=== PATIENT | female | born 1950 | race Caucasian/White ===

== ENCOUNTER 2019-11-13 10:44 | Outpatient (CLI) | payer MEDICARE, OTHER, SELFPAY ==
--- NOTE | 2019-11-13 10:49 | XRR_ITS ---
PROCEDURE INFORMATION: Exam: XR Left Wrist Exam date and time: 11/13/2019 11:35 AM Age: 69 years old Clinical indication: Pain; Wrist; Left; Additional info: L wrist pain, no known trauma, medial, since May 2019 TECHNIQUE: Imaging protocol: XR Left wrist. Views: 3 or more views. COMPARISON: No relevant prior studies available. FINDINGS: Bones/joints: No acute fracture. 1st carpal/metacarpal degenerative/arthritic change. No periarticular erosion. Soft tissues: Normal. XR/XR wrist LT min 3V* [id number] IMPRESSION: No acute findings. Degenerative/arthritic change.
== END 2019-11-13 10:45 | disposition home or self-care (01) ==
LOC: LAB 10:47
PROVIDERS: PCP Family Medicine; Visit Provider Family Medicine
DX: M25.532 Pain in left wrist (principal)
CPT/HCPCS: 73110

== ENCOUNTER → 2021-08-18 14:39 | Outpatient (BNVA) | payer MEDICARE, OTHER, SELFPAY | PROVIDERS: PCP Family Medicine; Visit Provider Internal Medicine | DX: R00.2 Palpitations (principal); I48.20 Chronic atrial fibrillation, unspecified | CPT/HCPCS: 93229 ==

== ENCOUNTER 2021-08-22 10:06 | Observation (INO) | payer MEDICARE, OTHER, SELFPAY ==
[2021-08-22] VITALS (17 sets, daily range): BP systolic 116–209; BP diastolic 46–100; PULSE 45–80; RESP 13–22; TEMP 36.8–36.9; O2SAT 96–100; BMI 19.8
--- NOTE | 2021-08-22 10:07 | XRR_ITS ---
PROCEDURE INFORMATION: Exam: XR Chest Exam date and time: 08/22/2021 11:32 AM Age: 70 years old Clinical indication: Device placement; Patient HX: PT has a loop recorder; Additional info: Cp TECHNIQUE: Imaging protocol: Radiologic exam of the chest. Views: 1 view. COMPARISON: No relevant prior studies available. FINDINGS: Tubes, catheters and devices: Recording device projects over the thorax. Lungs: No focal airspace disease. Pleural spaces: Unremarkable. No pleural effusion. No pneumothorax. Heart/Mediastinum: Cardiomediastinal silhouette is within normal limits. Bones/joints: Unremarkable. XR/XR chest 1V portable [id number] IMPRESSION: No acute cardiopulmonary abnormality.
--- NOTE | 2021-08-22 10:07 | ECG_ITS ---
[facility] Test Date: 2021-08-22 Pat Name: Katy Posada Department: Room: Gender: Female Marketing Content Specialist: : 1950 Requested By: Jose Casanova Order Number: [id number] Reading MD: Natali Fierro M.D. Measurements Intervals [place] Rate: 57 P: 66 [place]: 165 QRS: 155 QRSD: 96 T: 77 QT: 379 QTc: 372 Interpretive Statements SINUS BRADYCARDIA WITH SINUS ARRHYTHMIA INDETERMINATE AXIS INTERPRETATION BASED ON A DEFAULT AGE OF 40 YEARS No previous ECG available for comparison Electronically Signed On 08-22-2021 12:58:13 CDT by Natali Fierro M.D. [email or web address] [facility] Gasalliance hospitalActualSunket[facility].ActivNetworks/store/NU/[id number] f
--- NOTE | 2021-08-22 11:04 | W.ED.ARRPALP ---
HPI - Arrhythmia/Palpitations General: Chief Complaint: Arrhythmia/Palpitations Stated Complaint: heart abnormality Time Seen by Provider: 08/22/21 10:07 History of Present Illness: 70-year-old presents due to episodes of arrhythmia on Holter monitor. She does not have history of A. fib or atrial flutter however on Holter monitor she had some episodes of A. fib today with RVR. Denies any chest pain. Does report palpitations during the event but denies any current palpitations. Denies any shortness of breath. Denies fevers or chills. Instructed to come to the ER by primary care. States she is currently asymptomatic. Review of Systems Narrative: - CONSTITUTIONAL: Denies weight loss, fever and chills. - HEENT: Denies changes in vision and hearing. - RESPIRATORY: Denies SOB and cough. - CV: As above - GI: Denies abdominal pain, nausea, vomiting and diarrhea. - : Denies dysuria and urinary frequency. - MSK: Denies myalgia and joint pain. - SKIN: Denies rash and pruritus. - NEUROLOGICAL: Denies headache, weakness, numbness and syncope. - PSYCHIATRIC: Denies suicidal ideation [facility] ED PFSH: Medical History Edema History of nonmelanoma skin cancer IBS (irritable bowel syndrome) Surgical History History of tonsillectomy Family History Other CAD (coronary artery disease) Cancer Hypertension Social History Smoking and tobacco status: never smoked Alcohol intake: never History of recent travel: No Physical Exam Narrative: EXAM NARRATIVE: - GENERAL: Alert and oriented x 3. No acute distress. Well-nourished. - EYES: EOMI. Anicteric. - HENT: Atraumatic, no C-spine tenderness. Moist mucous membranes. No scleral icterus. No cervical lymphadenopathy. - LUNGS: Clear to auscultation bilaterally. No accessory muscle use. Equal lung sounds bilaterally. No respiratory distress. - CARDIOVASCULAR: Regular rate and rhythm. No murmur. No JVD. - ABDOMEN: Soft, non-tender and non-distended. Negative CVA tenderness bilaterally, no rebound or guarding, negative Leahy sign. No palpable masses. - EXTREMITIES: No edema. Non-tender. - SKIN: No rashes or lesions. Warm. - NEUROLOGIC: No meningismus or focal neurological deficits. CN II-XII grossly intact. - PSYCHIATRIC: Cooperative. Appropriate mood and affect. Course Vital Signs: Vital signs: Vital Signs Temperature 98.3 F 08/22/21 10:42 Pulse Rate 55 L 08/22/21 14:12 Respiratory Rate 18 08/22/21 14:12 Blood Pressure 135/64 08/22/21 14:12 Pulse Oximetry 96 08/22/21 14:12 MDM - Arrhythmia/Palpitations Medical Decision Making 70-year-old female presents due to intermittent palpitations. She had episodes of A. fib with RVR: Holter monitor. Here she denies any chest pain or shortness of breath. Has mild hypokalemia and supplemental potassium provided. EKG does not reveal any acute ischemic change however delta troponin significantly uptrending. Started on aspirin and heparin. Remainder of lab work and imaging reviewed. Discussed with hospitalist and they agreed patient would benefit from admission. Patient admitted in stable condition. Further evaluation management per hospitalist team. Lab Data : 08/22/21 11:04 08/22/21 11:04 Radiology Impressions Chest X-Ray 08/22/21 10:07 IMPRESSION: No acute cardiopulmonary abnormality. Laboratory Results WBC 4.4 10^3/uL (4.0-10.0) 08/22/21 11:04 RBC 4.39 10^6/uL (4.1-5.3) 08/22/21 11:04 Hgb 12.9 g/dL (11.5-15.3) 08/22/21 11:04 Hct 38.0 % (37.0-47.0) 08/22/21 11:04 MCV 86.6 fl (81-99) 08/22/21 11:04 MCH 29.4 pg (28.0-34.0) 08/22/21 11:04 MCHC 33.9 g/dL (30.0-36.0) 08/22/21 11:04 RDW 12.2 % (12.1-15.1) 08/22/21 11:04 Plt Count 286 10^3/cmm (130-400) 08/22/21 11:04 MPV 10.1 fL (7.4-10.4) 08/22/21 11:04 Neut % (Auto) 58.8 % 08/22/21 11:04 Lymph % (Auto) 30.1 % 08/22/21 11:04 [place] % (Auto) 8.6 % 08/22/21 11:04 Eos % (Auto) 1.8 % 08/22/21 11:04 Baso % (Auto) 0.7 % 08/22/21 11:04 Neut # (Auto) 2.60 10^3/uL (1.8-7.7) 08/22/21 11:04 Lymph # (Auto) 1.3 10^3/uL (0.8-4.8) 08/22/21 11:04 [place] # (Auto) 0.4 10^3/uL (0.2-0.9) 08/22/21 11:04 Eos # (Auto) 0.1 10^3/uL (0.0-0.8) 08/22/21 11:04 Baso # (Auto) 0.0 10^3/uL (0.0-0.1) 08/22/21 11:04 Nucleated RBC % (auto) 0 % 08/22/21 11:04 Nucleated RBCs # 0.0 /100WBC 08/22/21 11:04 Sodium 141 mmol/L (136-145) 08/22/21 11:04 Potassium 3.2 mmol/L (3.5-5.1) L 08/22/21 11:04 Chloride 102 mmol/L (98-107) 08/22/21 11:04 Carbon Dioxide 27 mmol/L (22-29) 08/22/21 11:04 Anion Gap 15.2 (5-19) 08/22/21 11:04 BUN 12 mg/dL (8-23) 08/22/21 11:04 Creatinine 0.4 mg/dL (0.5-0.9) L 08/22/21 11:04 GFR Calculation 157.8 mL/min (90-130) H 08/22/21 11:04 Glucose 86 mg/dL (65-115) 08/22/21 11:04 Calculated Osmolality 291 mOsm/kg (285-295) 08/22/21 11:04 Calcium 8.5 mg/dL (8.5-10.5) 08/22/21 11:04 Total Bilirubin 0.5 mg/dL (0.15-1.2) 08/22/21 11:04 AST 25 U/L (0-32) 08/22/21 11:04 ALT 15 U/L (0-33) 08/22/21 11:04 Alkaline Phosphatase 68 IU/L (35-105) 08/22/21 11:04 Troponin T Baseline 7 ng/L (0-10) 08/22/21 11:04 Troponin T 120 Minute 32.30 ng/L (0-10) H 08/22/21 13:08 Delta Troponin T 25.30 ABS# (0-10) H* 08/22/21 13:08 NT-Pro-B Natriuret Pep 164 pg/mL (0-125) H 08/22/21 11:04 Total Protein 6.7 g/dL (6.6-8.7) 08/22/21 11:04 Albumin 4.0 g/dL (3.5-5.2) 08/22/21 11:04 Globulin 2.7 g/dL (1.3-4.6) 08/22/21 11:04 TSH 2.48 uIU/mL (0.27-4.20) 08/22/21 11:04 Free T4 1.30 ng/dL (0.82-1.77) 08/22/21 11:04 Urine Color Yellow (Yellow) 08/22/21 12:15 Urine Appearance Clear (CLEAR) 08/22/21 12:15 Urine pH 8 (5-7) H 08/22/21 12:15 Ur Specific [place] 1.010 (1.005-1.030) 08/22/21 12:15 Urine Protein Neg (Negative) 08/22/21 12:15 Urine Glucose (UA) Norm (Normal) 08/22/21 12:15 Urine Ketones Negative (Negative) 08/22/21 12:15 Urine Blood Neg (Negative) 08/22/21 12:15 Urine Nitrate Negative (Negative) 08/22/21 12:15 Urine Bilirubin Neg (Negative) 08/22/21 12:15 Prot Sulfosalicylic Acd Negative (Negative) 08/22/21 12:15 Urine Urobilinogen Norm mg/dL (Negative) 08/22/21 12:15 Ur Leukocyte Esterase Negative (Negative) 08/22/21 12:15 Urine RBC None /hpf (0-2) 08/22/21 12:15 Urine WBC None /hpf (0-5) 08/22/21 12:15 Ur Squamous Epith Cells Rare /hpf (0-5) 08/22/21 12:15 Amorphous Sediment Not Reportable 08/22/21 12:15 Urine Bacteria None /hpf (NONE) 08/22/21 12:15 EKG Data EKG 1: Other EKG comments: Chest X-Ray 08/22/21 10:07 IMPRESSION: No acute cardiopulmonary abnormality. Sinus bradycardia with sinus arrhythmia, no sign of acute ischemia or other acute abnormality. Discharge Plan Discharge Condition: Stable Prescriptions: No Action triamterene-hydrochlorothiazid 37.5-25 mg tablet 1 tab PO DAILY 0RF omeprazole 20 mg capsule,delayed release(DR/EC) 20 mg PO DAILY 0RF hyoscyamine sulfate 0.375 mg tablet extended release 12 hr 0.375 mg PO Q12H PRN (Reason: abdominal cramps) 0RF multivitamin Tablet 1 tab PO DAILY 0RF vitamin E 100 unit Capsule 100 unit PO DAILY 0RF Vitamin C 500 mg Tablet 500 mg PO DAILY 0RF Stool Softener 100 mg Capsule 100 mg PO DAILY 0RF Referrals: Alfredo Koroma MD [Primary Care Provider] - Coding Level of Care Code ED Addiction Therapist for [facility] Larry
[2021-08-22 11:19] LABS: Basophils % 0.7 %; Eosinophils # 0.1 10^3/uL (0.0-0.8); Eosinophils % 1.8 %; Hemoglobin 12.9 g/dL (11.5-15.3); Lymphocytes # 1.3 10^3/uL (0.8-4.8); Lymphocytes % 30.1 %; Mean Corpuscular HGB Conc 33.9 g/dL (30.0-36.0); Mean Corpuscular Hemoglobin 29.4 pg (28.0-34.0); Mean Corpuscular Volume 86.6 fl (81-99); Mean Platelet Volume 10.1 fL (7.4-10.4); Monocytes # 0.4 10^3/uL (0.2-0.9); Monocytes % 8.6 %; Neutrophils % 58.8 %; Nucleated Red Blood Cells % 0 %; Platelet Count 286 10^3/cmm (130-400); Red Blood Count 4.39 10^6/uL (4.1-5.3); Red Cell Distribution Width 12.2 % (12.1-15.1); White Blood Count 4.4 10^3/uL (4.0-10.0)
[2021-08-22 11:39] LABS: Troponin(5th) Baseline 7 ng/L (0-10)
--- NOTE | 2021-08-22 12:07 | ECG_ITS ---
[facility] Test Date: 2021-08-22 Pat Name: Katy Posada Department: Room: Gender: Female Judge'S Clerk: : 1950 Requested By: Jose Casanova Order Number: [id number] Joaquin MD: Natali Fierro M.D. Measurements Intervals [place] Rate: 51 P: FL: QRS: 38 QRSD: 99 T: 70 QT: 413 QTc: 382 Interpretive Statements Sinus bradycardia with PACs compared to ECG 08/22/2021 10:48:57 Sinus arrhythmia no longer present Indeterminate axis no longer present Electronically Signed On 08-22-2021 13:06:14 CDT by Natali Fierro M.D. [id number]
[2021-08-22 12:12] LABS: Alanine Aminotransferase 15 U/L (0-33); Alkaline Phosphatase 68 IU/L (35-105); Blood Urea Nitrogen 12 mg/dL (8-23); Calcium 8.5 mg/dL (8.5-10.5); Carbon Dioxide 27 mmol/L (22-29); Chloride 102 mmol/L (98-107); Creatinine Clr Calc Pharmacy 63.9695; Globulin 2.7 g/dL (1.3-4.6); Glomerular Filtration Rate 157.8 mL/min (90-130); Glucose 86 mg/dL (65-115); NT Pro B Type Natriuretic Pept 164 pg/mL (0-125); Osmolality Calculated 291 mOsm/kg (285-295); Sodium 141 mmol/L (136-145); Thyroid Stimulating Hormone 2.48 uIU/mL (0.27-4.20); Total Bilirubin 0.5 mg/dL (0.15-1.2); Total Protein 6.7 g/dL (6.6-8.7)
[2021-08-22 12:15] LABS: Anion Gap 15.2 (5-19); Aspartate Amino Transferase 25 U/L (0-32); Potassium 3.2 mmol/L (3.5-5.1)
[2021-08-22 12:34] LABS: Urine Appearance Clear (CLEAR); Urine Color Yellow (Yellow); pH Urine 8 (5-7)
[2021-08-22] MEDS: potassium chloride ER 20 mEq Tablet PO (12:34)
[2021-08-22 12:35] LABS: Bilirubin Urine Neg (Negative); Blood Urine Neg (Negative); Glucose Urine UA Norm (Normal); Ketones Urine Negative (Negative); Leukocyte Esterase Urine Negative (Negative); Nitrate Urine Negative (Negative); Protein Urine Neg (Negative); Sulfosalicylic Acid Urine Negative (Negative); Urobilinogen Urine Norm (Negative)
[2021-08-22 12:36] LABS: Add Urine Culture? No; Squamous Epithelial Cell Urine RARE /hpf (0-5)
[2021-08-22] MEDS: aspirin 81 mg Chew Tablet 324 MG PO (14:26)
[2021-08-22] MEDS: enoxaparin 60 mg/0.6 mL Syringe SUBCUT (14:26)
[2021-08-22 14:36] LABS: Magnesium 1.8 mg/dL (1.7-2.3)
--- NOTE | 2021-08-22 15:45 | P.HP_ITS ---
Providers/Chief Complaint Primary Care Provider: Alfredo Koroma MD Chief Complaint: heart abnormality History of Present Illness Katy Posada is a 70 year old female with a past medical history of hypertension, GERD, who presents to [facility] due to concerns for chest palpitations, and abnormal Holter monitor results. Patient tells me that for the last week she has been experiencing chest palpitations, no chest pain, no shortness of breath, but feelings of rapid heart rate, she tried to see Dr. Koroma on Monday however he was full, due to prolonged episodes of chest palpitations on Monday, she eventually saw Dr. Koroma on Monday, and he had an event monitor placed, patient was called by event monitor company to come to the hospital due to abnormal heart rhythms. She denies any chest pain, no cardiovascular history, does have extensive family history of CAD. Mother had CAD, father also has CAD, in their 80s Review of Systems Const: Denies: fever(s) Eyes: Denies: change in vision ENMT: Denies: nasal congestion Resp: Denies: dyspnea, productive cough, non-productive cough or wheezing GI: Denies: abdominal pain, nausea, vomiting or hematemesis : Denies: flank pain Skin/Breast: Denies: rash Neuro: Denies: headache(s), dizziness or vertigo Medications/Allergies Home Medications Medication Instructions Recorded Confirmed Last Taken Type hyoscyamine sulfate 0.375 mg 0.375 mg PO Q12H PRN 01/08/20 08/22/21 Unknown History tablet,extended release,12 hr omeprazole 20 mg capsule,delayed 20 mg PO DAILY 01/08/20 08/22/21 08/22/21 History release triamterene 37.5 1 tab PO DAILY 01/08/20 08/22/21 08/22/21 History mg-hydrochlorothiazide 25 mg tablet ascorbic acid (vitamin C) 500 mg 500 mg PO DAILY 08/22/21 08/22/21 08/22/21 History tablet (Vitamin C) docusate sodium 100 mg capsule 100 mg PO DAILY 08/22/21 08/22/21 08/22/21 History (Stool Softener) multivitamin 1 tab PO DAILY 08/22/21 08/22/21 08/22/21 History vitamin E 100 unit capsule 100 unit PO DAILY 06/08/22/21 08/22/21 History Allergies Allergy/AdvReac Type Severity Reaction Status Date / Time No Known Allergies Allergy Verified 06/03/21 09:50 PFSH Acute PFSH: Medical History (Updated 08/22/21 @ 15:48 by Alfredo Casiano MD) Edema History of nonmelanoma skin cancer Hx of lower gastrointestinal bleeding IBS (irritable bowel syndrome) Surgical History History of tonsillectomy Family History Other CAD (coronary artery disease) Cancer Hypertension Social History Smoking and tobacco status: never smoked Alcohol intake: never History of recent travel: No Vitals/I&O/Wt Last Vital Signs Temp 98.3 F 08/22/21 10:42 Pulse 60 08/22/21 14:36 Resp 18 08/22/21 14:36 BP 160/63 08/22/21 14:36 Pulse Ox 100 08/22/21 14:30 Weight last 48 hrs Weight 58.967 kg Physical Exam Const: COMMON NORMALS: no acute distress and patient oriented x3 HENMT: COMMON NORMALS: normocephalic HEAD & SCALP: normocephalic Eye: COMMON NORMALS: Equal, round and reactive pupils present and EOMs intact bilaterally Neck/C-Spine: COMMON NORMALS: no JVD Resp: COMMON NORMALS: normal respiratory effort, No retractions, No use of accessory muscles and clear to auscultation bilaterally AUSCULTATION: clear to auscultation bilaterally Cardio: COMMON NORMALS: no JVD, regular rate, regular rhythm, S1 normal heart sound present and S2 normal heart sound present RATE: regular rate RHYTHM: regular rhythm HEART SOUNDS: S1 normal heart sound present and S2 normal heart sound present GI: COMMON NORMALS: Normal to inspection, nondistended, normoactive bowel sounds present, Soft to palpation, non-tender, No hepatosplenomegaly present, no masses and no bruits PALPATION: Yes Soft to palpation and Yes No hepatosplenomegaly present Extremity: COMMON NORMALS: capillary refill normal, no clubbing, cyanosis or edema, no calf tenderness and no pedal edema Neuro: COMMON NORMALS: patient oriented x3, CN's II-XII intact bilaterally, moves all extremities and no focal motor deficits Psych: COMMON NORMALS: mental status grossly normal Data : 08/22/21 11:04 08/22/21 11:04 A&P Assessment and plan (1) NSTEMI (non-ST elevated myocardial infarction): Status: Acute (2) Atrial fibrillation: Status: Acute (3) Hx of gastric ulcer: Status: Acute Plan Arrhythmia events -Review of patient's event monitor -Shows episodes of atrial fibrillation, atrial flutter, SVT Plan -Aspirin, statin, beta-annabel -Given arrhythmia meds, start therapeutic Lovenox, given gastric ulcer history, GI bleed history, start Protonix, Carafate -Continue telemetry monitoring -Potassium placement, magnesium replacement -We will check TSH -Full code -Lovenox for DVT prophylaxis NSTEMI -No chest pain complaints, but has palpitations, arrhythmia events as above -Serial EKGs, serial troponins -Lovenox, aspirin, statin -N.p.o. midnight, cardiac stress test tomorrow Attestations Medical Necessity Statement*: Patient requires hospitalization, outpatient with observation, for arrhythmia, A. fib, SVT, elevated troponins Coding Level of Care Code Acute Electromechanical Equipment Assembler for [facility] Diagnoses NSTEMI (non-ST elevated myocardial infarction) I21.4 Atrial fibrillation I48.91 Hx of gastric ulcer Z87.11
--- NOTE | 2021-08-22 16:07 | ECG_ITS ---
[facility] Test Date: 2021-08-22 Pat Name: Katy Posada Department: Room: 276 Gender: Female Mucking Machine Operator: : 1950 Requested By: Jose Casanova Order Number: [id number] Joaquin MD: Natali Fierro M.D. Measurements Intervals [place] Rate: 61 P: 61 [place]: 165 QRS: -42 QRSD: 95 T: 52 QT: 392 QTc: 397 Interpretive Statements SINUS RHYTHM WITH SINUS ARRHYTHMIA POSSIBLE LEFT ATRIAL ENLARGEMENT [-0.1mV P-WAVE IN V1/V2] LEFT AXIS DEVIATION [QRS AXIS < -30] Compared to ECG 08/22/2021 12:09:10 Left-axis deviation now present Sinus bradycardia no longer present Electronically Signed On 08-23-2021 21:32:51 CDT by Natali Fierro M.D. [email or web address] centerPal[facility].Feidee/store/OM/[id number]
--- NOTE | 2021-08-22 17:12 | USCV_ITS ---
Katy Posada Age: 70 Gender: F : 1950 Exam Date: 08/22/2021 19:15 Ordering Phys: Alfredo Casiano MD Technologist: Jonathon Manjarrez [place] [facility] [place]: Shortness of breath BP: 138 / 100 HR: 50 Rhythm: Sinus Technical Quality: Adequate MEASUREMENTS (Male / Female) Normal Values 2D ECHO LV Diastolic Diameter PLAX 3.8 cm 4.2 - 5.9 / 3.9 - 5.3 cm LV Systolic Diameter PLAX 2.1 cm IVS Diastolic Thickness 0.9 cm 0.6 - 1.0 / 0.6 - 0.9 cm IVS Systolic Thickness 1.6 cm LVPW Diastolic Thickness 1.6 cm 0.6 - 1.0 / 0.6 - 0.9 cm LVPW Systolic Thickness 2.1 cm LVOT Diameter 2.1 cm LV Ejection Fraction 2D Teich 66.9 % LV Ejection Fraction MOD 2C 32.9 % LV Ejection Fraction 2C AL 34.6 % LA Diameter 3.0 cm Aorta at Sinotubular Diameter 2.7 cm IVC Diameter 2.5 cm M-MODE Aortic Annulus Diameter 3.1 cm LA Ao Ratio MM 1.2 MV E Point Septal Separation 1.6 cm DOPPLER AV Peak Velocity 103.0 cm/s LVOT Peak Velocity 72.0 cm/s AV Area Cont Eq vti 2.5 cm squared AV Area Cont Eq pk 2.4 cm squared MV Area PHT 5.0 cm squared Mitral E to A Ratio 1.6 MV E' Velocity 53.5 cm/s Mitral E to MV E' Ratio 8.6 Mitral E to LV E' Lateral Ratio 9.8 Mitral E to LV E' Septal Ratio 7.6 TR Peak Velocity 224.9 cm/s TR Peak Gradient 20.2 mmHg TR Mean Velocity 156.6 cm/s TR Mean Gradient 11.6 mmHg TR Velocity Time Integral 67.2 cm Right Atrial Pressure 3.0 mmHg Pulmonary Artery Systolic Pressu 23.2 mmHg PV Peak Velocity 72.0 cm/s FINDINGS Left Ventricle Normal left ventricular size, systolic function and wall thickness, with no regional wall motion abnormalities. Left ventricular ejection fraction is estimated at 60 %. Grade II diastolic dysfunction, moderately elevated filling pressures. Right Ventricle Normal right ventricular size and systolic function. RVSP could not be calculated due to incomplete tricuspid regurgitation velocity profile. Right Atrium Normal right atrial size. Left Atrium Normal left atrial size. Mitral Valve Mild mitral annular calcification. Mildly thickened mitral valve. No mitral valve stenosis. Trace to mild mitral valve regurgitation. Aortic Valve No aortic valve stenosis. Trace aortic valve regurgitation. Tricuspid Valve Structurally normal tricuspid valve. Pulmonic Valve Pulmonic valve not well visualized. No pulmonary valve stenosis. No pulmonary valve regurgitation. Pericardium No pericardial effusion. Aorta Normal-sized aortic root. IVC Dilated IVC with normal respiratory variation. CONCLUSIONS 1. Normal left ventricular size, systolic function and wall thickness, with no regional wall motion abnormalities. Left ventricular ejection fraction is estimated at 60 %. Grade II diastolic dysfunction, moderately elevated filling pressures. 2. Normal right ventricular size and systolic function. 3. Trace to mild mitral valve regurgitation. 4. No prior similar studies to compare. Natali Fierro MD (Electronically Signed) Final Date: 23 August 2021 08:38 S
[2021-08-22] MEDS: pantoprazole 40 mg SDV IVP (17:26)
[2021-08-22] MEDS: sucralfate 1 gm Tablet PO ×2 (17:27→20:46)
[2021-08-22] MEDS: magnesium sulfate premix 2 GM/50 ML PIGGYBACK IV (17:28)
[2021-08-22 17:36] LABS: Chol HDL Ratio 3.16 mg/dL (0.0-4.40); Cholesterol 218 mg/dL (0-200); HDL Cholesterol 69 mg/dL (60-100); LDL Cholesterol Calculated 128 mg/dL (50-129); LDL HDL Ratio 1.86 RATIO (0.00-3.22); Triglycerides 105 mg/dL (0-150)
[2021-08-22] MEDS: metoprolol tartrate 25 mg Tablet PO (17:38)
[2021-08-22 18:21] LABS: Troponin 5 6HR 89.41 ng/L (0-10)
[2021-08-22 18:23] LABS: Estmated Average Glucose 108; Hemoglobin A1C 5.4 % (4.0-6.0)
[2021-08-22 18:27] LABS: Troponin 5 6HR Delta 82.41 ng/L (0-12)
[2021-08-23] VITALS (7 sets, daily range): BP systolic 121–156; BP diastolic 60–81; PULSE 43–81; RESP 14–17; TEMP 36.3–36.8; O2SAT 98–99
[2021-08-23] MEDS: enoxaparin 60 mg/0.6 mL Syringe SUBCUT ×2 (01:23→13:45)
[2021-08-23] MEDS: pantoprazole 40 mg SDV IVP (04:34)
[2021-08-23 04:42] LABS: Basophils # 0.1 10^3/uL (0.0-0.1); Basophils % 1.1 %; Eosinophils # 0.2 10^3/uL (0.0-0.8); Eosinophils % 2.8 %; Hematocrit 38.9 % (37.0-47.0); Hemoglobin 13.3 g/dL (11.5-15.3); Lymphocytes % 37.2 %; Mean Corpuscular HGB Conc 34.2 g/dL (30.0-36.0); Mean Corpuscular Hemoglobin 29.3 pg (28.0-34.0); Mean Corpuscular Volume 85.7 fl (81-99); Mean Platelet Volume 10.2 fL (7.4-10.4); Monocytes # 0.5 10^3/uL (0.2-0.9); Monocytes % 9.9 %; Neutrophils # 2.62 10^3/uL (1.8-7.7); Neutrophils % 48.8 %; Nucleated Red Blood Cells % 0 %; Platelet Count 321 10^3/cmm (130-400); Red Blood Count 4.54 10^6/uL (4.1-5.3); Red Cell Distribution Width 12.2 % (12.1-15.1); White Blood Count 5.4 10^3/uL (4.0-10.0)
[2021-08-23 05:05] LABS: Alanine Aminotransferase 15 U/L (0-33); Alkaline Phosphatase 66 IU/L (35-105); Anion Gap 11.4 (5-19); Aspartate Amino Transferase 22 U/L (0-32); Blood Urea Nitrogen 11 mg/dL (8-23); Carbon Dioxide 31 mmol/L (22-29); Chloride 102 mmol/L (98-107); Globulin 2.3 g/dL (1.3-4.6); Glomerular Filtration Rate 157.8 mL/min (90-130); Glucose 87 mg/dL (65-115); Magnesium 2.3 mg/dL (1.7-2.3); Osmolality Calculated 291 mOsm/kg (285-295); Potassium 3.4 mmol/L (3.5-5.1); Sodium 141 mmol/L (136-145); Total Bilirubin 0.5 mg/dL (0.15-1.2); Total Protein 6.3 g/dL (6.6-8.7)
[2021-08-23 05:07] LABS: Creatinine Clr Calc Pharmacy 63.9695
--- NOTE | 2021-08-23 06:58 | ECG_ITS ---
[facility] Test Date: 2021-08-23 Pat Name: Katy Posada Department: Room: 276 Gender: Female Computer Game Tester: Annamaria Casanova : 1950 Requested By: Alfredo Casiano Order Number: [id number] Joaquin MD: Celso Pillai M.D. Interpretive Statements NAME OF STUDY: LEXISCAN SESTAMIBI STRESS TEST INDICATION: Chest Pain, PROCEDURE: At the baseline, the EKG revealed sinus bradycardia with a rate of [address] changes.. The baseline blood pressure was 139/73 mm Hg with a heart rate of 51 beats/min. Lexiscan was infused over a period of 20 seconds. A total of 0.4 milligrams of Lexiscan was infused. The stress phase was continued for a total of 5 minutes. Heart rate at the end of the stress phase was 73 with a blood pressure 119/71. The EKG at the peak infusion revealed no significant changes. Sestamibi was injected 20 seconds after the Lexiscan infusion. Blood pressure at the end of the recovery phase was 121/69 with a heart rate of 68 per minute. CONCLUSION: 1. No significant EKG changes with the LexiScan infusion 2. No LexiScan induced chest pain or cardiac arrhythmia 3. Normal blood pressure and heart rate response 4. Sestamibi/sestamibi perfusion scan pending; see separate report. Electronically Signed On 08-27-2021 11:25:16 CDT by Celso Pillai M.D. [email or web address]/[id number]
[2021-08-23] MEDS: regadenoson 0.4 Mg/5 ml Syringe IVP (07:43)
[2021-08-23] MEDS: aspirin 81 mg EC Tablet PO (09:18)
[2021-08-23] MEDS: hydroCHLOROthiazide 25 mg Tablet PO (09:18)
[2021-08-23] MEDS: ascorbic acid 500 mg Tablet PO (09:18)
[2021-08-23] MEDS: docusate sodium 100 mg Capsule PO (09:18)
[2021-08-23] MEDS: multivitamin therapeutic Tablet 1 TAB PO (09:18)
[2021-08-23] MEDS: sucralfate 1 gm Tablet PO (12:11)
--- NOTE | 2021-08-23 15:01 | PM.DCS ---
Discharge Providers Date of Admission: 08/22/21 14:19 Date of Discharge: August 23, 2021 Attending Provider at Admission: Alfredo Casiano MD Attending Provider at Discharge: Alfredo Casiano MD Primary Care Provider: Alfredo Koroma MD Diagnoses at Discharge Discharge Diagnosis (1) NSTEMI (non-ST elevated myocardial infarction): Status: Acute (2) Atrial fibrillation: Status: Acute (3) Hx of gastric ulcer: Status: Acute Reason for Visit Reason for Visit: heart abnormality Hospital Course Hospital Course Katy Posada is a 70 year old female with a past medical history of hypertension, GERD, who presents to [facility] due to concerns for chest palpitations, and abnormal Holter monitor results.? Patient was admitted to [facility] Was found to have paroxysmal atrial fibrillation events on her event monitor -It was reported SVT episodes, they look more like atrial fibrillation episodes to me, also had atrial flutter -No events here in the hospital -Managed with beta-annabel, therapeutic Lovenox -Hemoglobin remained stable, no bloody or black stools, no lightheadedness -Will be discharged on metoprolol 25 twice daily -Seth Pham is 3 -Discharged on Eliquis 5 mg twice daily -Given history of gastric ulcers discharged on Protonix 40 twice daily -Advised to monitor for bloody or black stools or lightheadedness or hematemesis if so go to the emergency room immediately Patient did have elevated troponins during hospitalization NSTEMI, no chest pain complaints during hospitalization, no chest pain complaints on admission Echocardiogram showed -1. Normal left ventricular size, systolic function and wall ?thickness, with no regional wall motion abnormalities. Left ?ventricular ejection fraction is estimated at 60 %. Grade II ?diastolic dysfunction, moderately elevated filling pressures. ?2. Normal right ventricular size and systolic function. ?3. Trace to mild mitral valve regurgitation. ?4.? No prior similar studies to compare. Stress test showed 1.? Unremarkable Myocardial perfusion imaging. ?2.? Normal LV ejection fraction 70%. ?3.? LV wall motion analysis revealing no gross wall motion normalities. ?4.? Normal LV volume ?5.? Low probability for coronary ischemia, based on the above findings Will be discharged with close follow-up with cardiology as outpatient Follow-up with Dr. Koroma as outpatient Physical Exam Const: COMMON NORMALS: no acute distress and patient oriented x3 HENMT: COMMON NORMALS: normocephalic HEAD & SCALP: normocephalic Neck/C-Spine: COMMON NORMALS: no JVD Resp: COMMON NORMALS: normal respiratory effort, No retractions, No use of accessory muscles and clear to auscultation bilaterally AUSCULTATION: clear to auscultation bilaterally Cardio: COMMON NORMALS: no JVD, regular rate, regular rhythm, S1 normal heart sound present and S2 normal heart sound present RATE: regular rate RHYTHM: regular rhythm HEART SOUNDS: S1 normal heart sound present and S2 normal heart sound present GI: COMMON NORMALS: Normal to inspection, nondistended, normoactive bowel sounds present, Soft to palpation, non-tender, No hepatosplenomegaly present, no masses and no bruits PALPATION: Yes Soft to palpation and Yes No hepatosplenomegaly present Extremity: COMMON NORMALS: no pedal edema Neuro: COMMON NORMALS: patient oriented x3 Psych: COMMON NORMALS: mental status grossly normal Discharge Data Studies Completed and Pending Completed Studies During Hospitalization Category Date Time Status Cardiac Stress Test MIBI [Sestamibi Stress Test Request Exams 08/23/21 06:58 Draft ] Routine XR chest 1V portable [id number] Stat Exams 08/22/21 10:07 Completed NM odette perf SPECT r/s* [id number] Routine Nuc Med 08/23/21 17:12 Completed CV. echo complete* [id number] Routine Ultrasound 08/22/21 17:12 Completed Pending at discharge Category Date Time Status Sestamibi Stress Test Request Routine Exams 08/22/21 17:12 Ordered Complete Blood Count w/Auto AM LABS Lab 08/24/21 04:00 Ordered Complete Blood Count w/Auto AM LABS Lab 08/25/21 04:00 Ordered Comprehensive Metabolic Panel AM LABS Lab 08/24/21 04:00 Ordered Comprehensive Metabolic Panel AM LABS Lab 08/25/21 04:00 Ordered Magnesium AM LABS Lab 08/24/21 04:00 Ordered Magnesium AM LABS Lab 08/25/21 04:00 Ordered Phosphorus AM LABS Lab 08/24/21 04:00 Ordered Phosphorus AM LABS Lab 08/25/21 04:00 Ordered Radiology Impressions Chest X-Ray 08/22/21 10:07 IMPRESSION: No acute cardiopulmonary abnormality. Laboratory Results WBC 5.4 10^3/uL (4.0-10.0) 08/23/21 04:05 RBC 4.54 10^6/uL (4.1-5.3) 08/23/21 04:05 Hgb 13.3 g/dL (11.5-15.3) 08/23/21 04:05 Hct 38.9 % (37.0-47.0) 08/23/21 04:05 MCV 85.7 fl (81-99) 08/23/21 04:05 MCH 29.3 pg (28.0-34.0) 08/23/21 04:05 MCHC 34.2 g/dL (30.0-36.0) 08/23/21 04:05 RDW 12.2 % (12.1-15.1) 08/23/21 04:05 Plt Count 321 10^3/cmm (130-400) 08/23/21 04:05 MPV 10.2 fL (7.4-10.4) 08/23/21 04:05 Neut % (Auto) 48.8 % 08/23/21 04:05 Lymph % (Auto) 37.2 % 08/23/21 04:05 [place] % (Auto) 9.9 % 08/23/21 04:05 Eos % (Auto) 2.8 % 08/23/21 04:05 Baso % (Auto) 1.1 % 08/23/21 04:05 Neut # (Auto) 2.62 10^3/uL (1.8-7.7) 08/23/21 04:05 Lymph # (Auto) 2.0 10^3/uL (0.8-4.8) 08/23/21 04:05 [place] # (Auto) 0.5 10^3/uL (0.2-0.9) 08/23/21 04:05 Eos # (Auto) 0.2 10^3/uL (0.0-0.8) 08/23/21 04:05 Baso # (Auto) 0.1 10^3/uL (0.0-0.1) 08/23/21 04:05 Nucleated RBC % (auto) 0 % 08/23/21 04:05 Nucleated RBCs # 0.0 /100WBC 08/23/21 04:05 Sodium 141 mmol/L (136-145) 08/23/21 04:05 Potassium 3.4 mmol/L (3.5-5.1) L 08/23/21 04:05 Chloride 102 mmol/L (98-107) 08/23/21 04:05 Carbon Dioxide 31 mmol/L (22-29) H 08/23/21 04:05 Anion Gap 11.4 (5-19) 08/23/21 04:05 BUN 11 mg/dL (8-23) 08/23/21 04:05 Creatinine 0.4 mg/dL (0.5-0.9) L 08/23/21 04:05 GFR Calculation 157.8 mL/min (90-130) H 08/23/21 04:05 Glucose 87 mg/dL (65-115) 08/23/21 04:05 Estimat Average Glucose 108 08/22/21 11:04 Hemoglobin A1c 5.4 % (4.0-6.0) 08/22/21 11:04 Calculated Osmolality 291 mOsm/kg (285-295) 08/23/21 04:05 Calcium 9.0 mg/dL (8.5-10.5) 08/23/21 04:05 Phosphorus 3.0 mg/dL (2.5-4.5) 08/23/21 04:05 Magnesium 2.3 mg/dL (1.7-2.3) 08/23/21 04:05 Total Bilirubin 0.5 mg/dL (0.15-1.2) 08/23/21 04:05 AST 22 U/L (0-32) 08/23/21 04:05 ALT 15 U/L (0-33) 08/23/21 04:05 Alkaline Phosphatase 66 IU/L (35-105) 08/23/21 04:05 Troponin T Baseline 7 ng/L (0-10) 08/22/21 11:04 Troponin T 120 Minute 32.30 ng/L (0-10) H 08/22/21 13:08 Delta Troponin T 25.30 ABS# (0-10) H* 08/22/21 13:08 Troponin T Hi Sens 6Hr 89.41 ng/L (0-10) H 08/22/21 17:30 Troponin T Hi Sens 6Hr Delta 82.41 ng/L (0-12) H* 08/22/21 17:30 NT-Pro-B Natriuret Pep 164 pg/mL (0-125) H 08/22/21 11:04 NT-Pro-B Natriuret Pep Cancelled 08/22/21 11:04 Total Protein 6.3 g/dL (6.6-8.7) L 08/23/21 04:05 Albumin 4.0 g/dL (3.5-5.2) 08/23/21 04:05 Globulin 2.3 g/dL (1.3-4.6) 08/23/21 04:05 Triglycerides 105 mg/dL (0-150) 08/22/21 11:04 Cholesterol 218 mg/dL (0-200) H 08/22/21 11:04 LDL Cholesterol, Calc 128 mg/dL (50-129) 08/22/21 11:04 HDL Cholesterol 69 mg/dL (60-100) 08/22/21 11:04 LDL/HDL Ratio 1.86 RATIO (0.00-3.22) 08/22/21 11:04 Cholesterol/HDL Ratio 3.16 mg/dL (0.0-4.40) 08/22/21 11:04 TSH 2.48 uIU/mL (0.27-4.20) 08/22/21 11:04 TSH Cancelled 08/22/21 11:04 Free T4 1.30 ng/dL (0.82-1.77) 08/22/21 11:04 Urine Color Yellow (Yellow) 08/22/21 12:15 Urine Appearance Clear (CLEAR) 08/22/21 12:15 Urine pH 8 (5-7) H 08/22/21 12:15 Ur Specific [place] 1.010 (1.005-1.030) 08/22/21 12:15 Urine Protein Neg (Negative) 08/22/21 12:15 Urine Glucose (UA) Norm (Normal) 08/22/21 12:15 Urine Ketones Negative (Negative) 08/22/21 12:15 Urine Blood Neg (Negative) 08/22/21 12:15 Urine Nitrate Negative (Negative) 08/22/21 12:15 Urine Bilirubin Neg (Negative) 08/22/21 12:15 Prot Sulfosalicylic Acd Negative (Negative) 08/22/21 12:15 Urine Urobilinogen Norm mg/dL (Negative) 08/22/21 12:15 Ur Leukocyte Esterase Negative (Negative) 08/22/21 12:15 Urine RBC None /hpf (0-2) 08/22/21 12:15 Urine WBC None /hpf (0-5) 08/22/21 12:15 Ur Squamous Epith Cells Rare /hpf (0-5) 08/22/21 12:15 Amorphous Sediment Not Reportable 08/22/21 12:15 Urine Bacteria None /hpf (NONE) 08/22/21 12:15 Vitals Last Vital Signs Temp 97.5 F L 08/23/21 11:42 Pulse 74 08/23/21 11:42 Resp 14 08/23/21 11:42 BP 122/63 08/23/21 11:42 Pulse Ox 99 08/23/21 11:42 Discharge Plan Discharge Patient Disposition: Home Condition: Stable Prescriptions: New metoprolol tartrate 25 mg Tablet 25 mg PO Q12H 30 Days Qty: 60 0RF Eliquis 5 mg tablet 5 mg PO BID 30 Days Qty: 60 0RF pantoprazole [Protonix] 40 mg tablet,delayed release (DR/EC) 40 mg PO BID 30 Days Qty: 60 0RF Continued triamterene-hydrochlorothiazid 37.5-25 mg tablet 1 tab PO DAILY 0RF hyoscyamine sulfate 0.375 mg tablet extended release 12 hr 0.375 mg PO Q12H PRN (Reason: abdominal cramps) 0RF multivitamin Tablet 1 tab PO DAILY 0RF vitamin E 100 unit Capsule 100 unit PO DAILY 0RF Vitamin C 500 mg Tablet 500 mg PO DAILY 0RF Stool Softener 100 mg Capsule 100 mg PO DAILY 0RF Discontinued omeprazole 20 mg capsule,delayed release(DR/EC) 20 mg PO DAILY 0RF Discharge Orders: Discharge Order (Routine); Ordered 08/23/21 Ordered By: Alfredo Casiano Referrals: Celso Pillai MD [Physician] - 1-3 days Alfredo Koroma MD [Primary Care Provider] - Patient Instructions: Opioid Safety Activity Restrictions/Additional Instructions: - For atrial fibrillation please take Eliquis as prescribed -Eliquis is a very strong blood thinner, if you develop bloody or black stools or lightheadedness go to the emergency room immediately -Follow-up with Dr. Koroma for recheck CBC in 1 week -I have discharged on metoprolol 25 twice daily monitor heart rate, monitor blood pressures -Please follow-up with cardiology -If any recurrent symptoms go to the emergency room Discharge Attestations Time Spent in Discharge Care*: less than 30 min Quality Metrics Clinical Quality Measures [ No reported AMI, CVA or VTE this stay] Coding Level of Care Code Acute Chg FW DC note Diagnoses NSTEMI (non-ST elevated myocardial infarction) I21.4 Atrial fibrillation I48.91 Hx of gastric ulcer Z87.11
--- NOTE | 2021-08-23 17:12 | NMCV_ITS ---
NM odette perf SPECT r/s* [id number] Katy Posada Age: 70 Gender: F : 1950 Exam Date: 08/23/2021 17:12 Ordering Phys: Alfredo Casiano MD Technologist: CAIO Zaragoza Exam Location: [facility] Indications: CHEST PAIN STRESS TEST Please see separate stress test report in [facility] for full findings IMAGE PROTOCOL Rest/Stress 1 Lexiscan Day Radiopharmaceutical Dose (mCi) Administration Site Administered by Rest: Tc-99m 10.7 IV CAIO Arthur Sestamibi Stress:Tc-99m 32.6 IV CAIO Arthur Sestamibi Rest: 23-Aug-2021 60 Discovery 630 Stress: 23-Aug-2021 30 Discovery 630 0.4mg Lexiscan. Images obtained in supine and prone position. SPECT RESULTS Technical Quality: Excellent Raw Data Analysis: Normal Image Corrections: No attenuation or motion correction applied Summed Stress Score: 0 Summed Rest Score: 2 Summed Difference Score: 0 PERFUSION FINDINGS Fairly uniform myocardial tracer uptake was noted. Attenuation artifact was noted in the inferior wall region FUNCTIONAL RESULTS (calculated via Gated SPECT) Stress Image LV EF (%): 70 Stress EDV (mL):101 TID: 1.07 Stress ESV (mL):30 FUNCTIONAL FINDINGS: Segmental wall motion analysis revealing no gross wall motion normalities. IMPRESSIONS 1. Unremarkable Myocardial perfusion imaging. 2. Normal LV ejection fraction 70%. 3. LV wall motion analysis revealing no gross wall motion normalities. 4. Normal LV volume 5. Low probability for coronary ischemia, based on the above findings Dr Celso Pillai MD FACC (Electronically Signed) Final Date: 23 August 2021 14:51 S
== END 2021-08-23 16:28 | disposition home or self-care (01) ==
LOC: ER 11:06 → MEDSURG 08-23 05:23
PROVIDERS: Emergency Medicine; Admitting Provider Family Medicine; Emergency Provider Emergency Medicine; PCP Family Medicine; Visit Provider Family Medicine
DX: I21.4 Non-ST elevation (NSTEMI) myocardial infarction (principal); Z87.11 Personal history of peptic ulcer disease; I48.0 Paroxysmal atrial fibrillation; Z82.49 Family history of ischemic heart disease and other diseases of the circulatory system; Z85.828 Personal history of other malignant neoplasm of skin
CPT/HCPCS: 36415; 71045; 78452; 80053; 80061; 81001; 83036; 83735; 83880; 84100; 84439; 84443; 84484; 85025; 93005; 93017; 93306; 96372; 99285; A9500; C9113; G0378; J1650; J2785; J3475

== ENCOUNTER → 2021-10-19 10:42 | Outpatient (BNVA) | payer MEDICARE, OTHER, SELFPAY | PROVIDERS: PCP Family Medicine; Visit Provider Internal Medicine Cardiovascular Disease | DX: I48.91 Unspecified atrial fibrillation (principal); R00.1 Bradycardia, unspecified; I10 Essential (primary) hypertension; M79.89 Other specified soft tissue disorders | CPT/HCPCS: 99204 ==

== ENCOUNTER → 2022-01-11 11:05 | Outpatient (BNVA) | payer MEDICARE, OTHER, SELFPAY | PROVIDERS: PCP Family Medicine; Visit Provider Internal Medicine Cardiovascular Disease | DX: R06.02 Shortness of breath (principal); M79.89 Other specified soft tissue disorders; I48.91 Unspecified atrial fibrillation; R00.1 Bradycardia, unspecified; Z87.11 Personal history of peptic ulcer disease; I10 Essential (primary) hypertension; Z79.01 Long term (current) use of anticoagulants | CPT/HCPCS: 36415; 80048; 83880; 99214 ==

== ENCOUNTER → 2022-06-28 10:03 | Outpatient (BNVA) | payer MEDICARE, OTHER, SELFPAY | PROVIDERS: PCP Family Medicine; Visit Provider Clinical Nurse Specialist Adult Health | DX: R35.0 Frequency of micturition (principal); N30.00 Acute cystitis without hematuria | CPT/HCPCS: 81000; 87086 ==

== ENCOUNTER → 2022-07-14 13:39 | Outpatient (BNVA) | payer MEDICARE, OTHER, SELFPAY | PROVIDERS: PCP Family Medicine; Visit Provider Family Medicine | DX: R30.0 Dysuria (principal) | CPT/HCPCS: 81003; 87086 ==

== ENCOUNTER → 2022-07-14 16:24 | Outpatient (BNVA) | payer MEDICARE, OTHER, SELFPAY | PROVIDERS: PCP Family Medicine; Visit Provider Family Medicine | DX: R30.0 Dysuria (principal); R31.9 Hematuria, unspecified | CPT/HCPCS: 87077; 87184 ==

== ENCOUNTER → 2022-07-18 14:06 | Outpatient (BNVA) | payer MEDICARE, OTHER, SELFPAY | PROVIDERS: PCP Family Medicine; Visit Provider Dermatology | DX: L57.0 Actinic keratosis (principal); L82.1 Other seborrheic keratosis; D22.5 Melanocytic nevi of trunk; L81.4 Other melanin hyperpigmentation; Z85.828 Personal history of other malignant neoplasm of skin | CPT/HCPCS: 17000; 99213 ==

== ENCOUNTER → 2022-07-26 11:11 | Outpatient (BNVA) | payer MEDICARE, OTHER, SELFPAY | PROVIDERS: PCP Family Medicine; Visit Provider Internal Medicine Cardiovascular Disease | DX: I12.9 Hypertensive chronic kidney disease with stage 1 through stage 4 chronic kidney disease, or unspecified chronic kidney disease (principal); N18.9 Chronic kidney disease, unspecified; R06.02 Shortness of breath; I48.91 Unspecified atrial fibrillation; I73.00 Raynaud's syndrome without gangrene; R20.2 Paresthesia of skin; I10 Essential (primary) hypertension; R00.1 Bradycardia, unspecified | CPT/HCPCS: 36415; 80048; 84443; 99214 ==

== ENCOUNTER → 2022-10-19 15:38 | Outpatient (BNVA) | payer MEDICARE, OTHER, SELFPAY | PROVIDERS: PCP Family Medicine; Visit Provider Dermatology | DX: L57.0 Actinic keratosis (principal) | CPT/HCPCS: 17000; 17003 ==

== ENCOUNTER → 2023-02-07 09:52 | Outpatient (BNVA) | payer MEDICARE, OTHER, SELFPAY | PROVIDERS: PCP Family Medicine; Visit Provider Internal Medicine Cardiovascular Disease | DX: I48.11 Longstanding persistent atrial fibrillation (principal); Z79.01 Long term (current) use of anticoagulants; R00.1 Bradycardia, unspecified; M79.89 Other specified soft tissue disorders; I10 Essential (primary) hypertension | CPT/HCPCS: 99214 ==

== ENCOUNTER → 2023-04-26 13:34 | Outpatient (BNVA) | payer MEDICARE, OTHER, SELFPAY | PROVIDERS: PCP Family Medicine; Visit Provider Nurse Practitioner Family | DX: L57.0 Actinic keratosis (principal); L82.1 Other seborrheic keratosis; D22.5 Melanocytic nevi of trunk; L81.4 Other melanin hyperpigmentation; Z85.828 Personal history of other malignant neoplasm of skin | CPT/HCPCS: 17000; 99213 ==

== ENCOUNTER → 2023-08-09 10:27 | Outpatient (BNVA) | payer MEDICARE, OTHER, SELFPAY | PROVIDERS: PCP Family Medicine; Visit Provider Internal Medicine Cardiovascular Disease | DX: I48.11 Longstanding persistent atrial fibrillation (principal); R00.1 Bradycardia, unspecified; I10 Essential (primary) hypertension; M79.89 Other specified soft tissue disorders; Z79.01 Long term (current) use of anticoagulants | CPT/HCPCS: 99214 ==

== ENCOUNTER → 2023-10-25 10:07 | Outpatient (BNVA) | payer MEDICARE, OTHER, SELFPAY | PROVIDERS: PCP Family Medicine; Visit Provider Nurse Practitioner Family | DX: L57.0 Actinic keratosis (principal); L82.1 Other seborrheic keratosis; D22.5 Melanocytic nevi of trunk; L81.4 Other melanin hyperpigmentation; Z85.828 Personal history of other malignant neoplasm of skin | CPT/HCPCS: 17000; 99213 ==

== ENCOUNTER → 2023-11-20 11:04 | Outpatient (BNVA) | payer MEDICARE, OTHER, SELFPAY | PROVIDERS: PCP Family Medicine; Visit Provider Family Medicine | DX: Z51.81 Encounter for therapeutic drug level monitoring (principal); E53.8 Deficiency of other specified B group vitamins; E55.9 Vitamin D deficiency, unspecified; R53.81 Other malaise; R53.83 Other fatigue | CPT/HCPCS: 80053; 82306; 82607; 83735; 85025; 86141 ==

== ENCOUNTER → 2024-02-19 10:19 | Outpatient (BNVA) | payer MEDICARE, OTHER, SELFPAY | PROVIDERS: PCP Family Medicine; Visit Provider Internal Medicine Cardiovascular Disease | DX: R07.9 Chest pain, unspecified (principal); R00.1 Bradycardia, unspecified; I48.11 Longstanding persistent atrial fibrillation; I10 Essential (primary) hypertension; I73.00 Raynaud's syndrome without gangrene | CPT/HCPCS: 93005; 99214 ==

== ENCOUNTER → 2024-04-30 10:46 | Outpatient (BNVA) | payer MEDICARE, OTHER, SELFPAY | PROVIDERS: PCP Family Medicine; Visit Provider Nurse Practitioner Family | DX: L81.4 Other melanin hyperpigmentation (principal); L57.8 Other skin changes due to chronic exposure to nonionizing radiation; Z08 Encounter for follow-up examination after completed treatment for malignant neoplasm; Z85.828 Personal history of other malignant neoplasm of skin; D48.5 Neoplasm of uncertain behavior of skin; L57.0 Actinic keratosis | CPT/HCPCS: 17000; 99213 ==

== ENCOUNTER → 2024-07-09 13:02 | Outpatient (BNVA) | payer MEDICARE, OTHER, SELFPAY | PROVIDERS: PCP Family Medicine; Visit Provider Nurse Practitioner Family | DX: L57.8 Other skin changes due to chronic exposure to nonionizing radiation (principal); X32.XXXA Exposure to sunlight, initial encounter; L81.4 Other melanin hyperpigmentation; L82.1 Other seborrheic keratosis; Z08 Encounter for follow-up examination after completed treatment for malignant neoplasm; Z85.828 Personal history of other malignant neoplasm of skin; D48.5 Neoplasm of uncertain behavior of skin; L57.0 Actinic keratosis | CPT/HCPCS: 11102; 17000; 99213 ==

== ENCOUNTER → 2024-07-25 09:34 | Outpatient (BNVA) | payer MEDICARE, OTHER, SELFPAY | PROVIDERS: PCP Family Medicine; Visit Provider Dermatology | DX: C44.92 Squamous cell carcinoma of skin, unspecified (principal) | CPT/HCPCS: 99214 ==

== ENCOUNTER → 2024-09-12 15:04 | Outpatient (BNVA) | payer MEDICARE, OTHER, SELFPAY | PROVIDERS: PCP Family Medicine; Visit Provider Internal Medicine Cardiovascular Disease | DX: I48.11 Longstanding persistent atrial fibrillation (principal); R00.1 Bradycardia, unspecified; I10 Essential (primary) hypertension; I73.00 Raynaud's syndrome without gangrene; Z79.01 Long term (current) use of anticoagulants | CPT/HCPCS: 99214 ==

== ENCOUNTER 2024-09-23 15:44 | Outpatient (CLI) | payer MEDICARE, OTHER, SELFPAY ==
--- NOTE | 2024-09-23 16:13 | XRR_ITS ---
PROCEDURE INFORMATION: Exam: XR Right Knee Exam date and time: 09/23/2024 4:18 PM Age: 73 years old Clinical indication: Pain and injury or trauma; Sprain or strain; Patella or knee; Right; Injury date: 3 weeks ago; Injury details: RT knee pain, worse past 3 wks twisting injury; Additional info: Right knee pain TECHNIQUE: Imaging protocol: Radiologic exam of the right knee. Views: 3 views. COMPARISON: No relevant prior studies available. FINDINGS: Bones/joints: There is diffuse osteopenia. There is severe narrowing of the lateral compartment of the femorotibial joint with subchondral sclerosis and marginal spurs. There is mild narrowing of the medial compartment of the femorotibial joint with mild subchondral sclerosis and small marginal spurs. There is pointing of the tibial spines. There is moderate narrowing of the patellofemoral joint with subchondral sclerosis and small marginal spurs. No acute fracture is detected. Soft tissues: There is suprapatellar soft tissue fullness compatible with a joint effusion. There appears to be anterior soft tissue edema, particularly in the infrapatellar region. XR/XR knee RT 3V* [id number] IMPRESSION: 1. Diffuse osteopenia. 2. Osteoarthritis, particularly involving the lateral compartment of the femorotibial joint. 3. Joint effusion and anterior soft tissue edema. 4. No acute fracture detected. 5. If there is persistent clinical concern, MRI may be helpful for further evaluation.
== END 2024-09-23 15:45 | disposition home or self-care (01) ==
PROVIDERS: PCP Family Medicine; Visit Provider Family Medicine
DX: M17.11 Unilateral primary osteoarthritis, right knee (principal); M25.461 Effusion, right knee; M85.861 Other specified disorders of bone density and structure, right lower leg
CPT/HCPCS: 73562

== ENCOUNTER → 2024-09-27 09:21 | Outpatient (BNVA) | payer MEDICARE, OTHER, SELFPAY | PROVIDERS: PCP Family Medicine; Visit Provider Family Medicine | DX: E55.9 Vitamin D deficiency, unspecified (principal); Z00.00 Encounter for general adult medical examination without abnormal findings; Z51.81 Encounter for therapeutic drug level monitoring; Z13.6 Encounter for screening for cardiovascular disorders | CPT/HCPCS: 80053; 80061; 81000; 82306; 85025 ==

== ENCOUNTER 2024-10-09 10:19 | Outpatient (CLI) | payer MEDICARE, OTHER, SELFPAY ==
--- NOTE | 2024-10-09 10:30 | US_ITS ---
WS: [id number] RENAL ULTRASOUND URINARY BLADDER ULTRASOUND HISTORY: Hematuria [id number] COMPARISON: None available. TECHNIQUE: 2-D and color Doppler imaging of the kidney submitted. Right kidney: 10.8 cm x 4.1 cm x 4.3 cm. Normal size kidney. There is a fluid collection near the mid kidney which is probably an extrarenal pelvis. There is no dilatation of the calyces. No cortical thinning. Left kidney: 10.3 cm x 4.0 cm x 4.5 cm. Normal echogenicity with no hydronephrosis or mass. Normal size kidney. This kidney is not as well-visualized as the RIGHT kidney. There is an additional collection in the renal pelvis which is probably an extrarenal pelvis. Aorta: Normal. Urinary Bladder: Normal distention. Prevoid: 122 mL. Post void: 149 mL. US/US renal BI with PV bladder IMPRESSION: 1. No hydronephrosis. 2. LEFT kidney is poorly visualized. Consider further evaluation of the LEFT k idney by CT or MRI. Imaging should be performed with and without contrast. This will also help further evaluate the possible extra renal pelvis versus early o bstruction of the pelvis. 3. Small fluid collections near the central kidneys. Suspect these are small e xtrarenal pelves. No calyceal dilatation. 4. Post void volume was higher than the prevoid volume. Patient did not void a ny significant amount.
== END 2024-10-09 10:20 | disposition home or self-care (01) ==
LOC: RAD 10:20
PROVIDERS: PCP Family Medicine; Visit Provider Family Medicine
DX: R31.9 Hematuria, unspecified (principal)
CPT/HCPCS: 76770; 76857

== ENCOUNTER 2024-10-15 10:38 | Outpatient (CLI) | payer MEDICARE, OTHER, SELFPAY ==
--- NOTE | 2024-10-15 10:45 | CT_ITS ---
WS: [id number] CT ABDOMEN AND PELVIS WITH AND WITHOUT CONTRAST HISTORY: Flank pain, urinary retention TECHNIQUE: Unenhanced 5 mm axial imaging first performed through the abdomen. Post contrast imaging through the abdomen and pelvis. Oral contrast has not been provided. Sagittal and coronal reformats are submitted. All CT scans at [facility] use at least one of these dose optimization techniques: automated exposure control; mA and/or kV adjustment per patient size (includes targeted exams where dose is matched to clinical indication); or iterative reconstruction. CONTRAST: Omnipaque 350; 95 mL IV. DLP: 560.83 mGy.cm COMPARISON: Renal ultrasound 10/09/2024 Lung bases are clear. Heart size is normal. Kidneys are normal size. No calcifications or obstruction. Bilateral extrarenal pelves. No solid masses. No cysts are identified. Neither ureter is dilated. Minimally distended urinary bladder. No bladder wall enhancement. Hepatic and splenic granulomata. Normal gallbladder. No adrenal mass. Atherosclerosis aorta. Normal pancreas. Small hiatal hernia. Normally distended stomach. No small bowel obstruction. Tortuous colon with diffuse constipation. The appendix is normal. No colitis. No adenopathy or ascites. Degenerative rotary scoliosis. L4 anterolisthesis by 10 mm. There is severe disc space narrowing at L4-5 with bone upon bone. Bilateral foraminal stenosis at L4-5. CT/CT abdomen pelvis wo/w [id number] IMPRESSION: 1. No renal obstruction. 2. Bilateral extrarenal pelves. 3. No renal mass. 4. Negative urinary bladder. 5. No ascites or adenopathy. 6. L4 anterolisthesis by 10 mm.
[2024-10-15] MEDS: iohexol 350 mg/mL 500 mL Btl (per mL) IV (11:24)
== END 2024-10-15 10:39 | disposition home or self-care (01) ==
LOC: RAD 10:40
PROVIDERS: PCP Family Medicine; Visit Provider Family Medicine
DX: R31.9 Hematuria, unspecified (principal); R10.9 Unspecified abdominal pain; R33.9 Retention of urine, unspecified; R93.41 Abnormal radiologic findings on diagnostic imaging of renal pelvis, ureter, or bladder; D73.89 Other diseases of spleen; I70.0 Atherosclerosis of aorta; K44.9 Diaphragmatic hernia without obstruction or gangrene; K59.09 Other constipation; M41.56 Other secondary scoliosis, lumbar region; M48.061 Spinal stenosis, lumbar region without neurogenic claudication
CPT/HCPCS: 74178

== ENCOUNTER → 2024-10-21 11:23 | Outpatient (BNVA) | payer MEDICARE, OTHER, SELFPAY | PROVIDERS: PCP Family Medicine; Visit Provider Dermatology | DX: C44.92 Squamous cell carcinoma of skin, unspecified (principal); Z08 Encounter for follow-up examination after completed treatment for malignant neoplasm; Z85.828 Personal history of other malignant neoplasm of skin; L57.0 Actinic keratosis | CPT/HCPCS: 17000; 99214 ==

== ENCOUNTER → 2024-10-23 09:51 | Outpatient (BNVA) | payer MEDICARE, OTHER, SELFPAY | PROVIDERS: PCP Family Medicine; Visit Provider Student in an Organized Health Care Education/Training Program | DX: M25.561 Pain in right knee (principal); M17.11 Unilateral primary osteoarthritis, right knee; Z01.89 Encounter for other specified special examinations | CPT/HCPCS: 73560; 73565 ==

== ENCOUNTER 2024-10-23 13:40 | Outpatient (CLI) | payer MEDICARE, OTHER, SELFPAY | END 2024-10-23 13:41 | disposition home or self-care (01) | LOC: SPT 13:41 | PROVIDERS: PCP Family Medicine; Visit Provider Student in an Organized Health Care Education/Training Program | DX: Z46.89 Encounter for fitting and adjustment of other specified devices (principal); M17.11 Unilateral primary osteoarthritis, right knee | CPT/HCPCS: 20610; J3301; J9999; L1851 ==

== ENCOUNTER → 2025-01-15 13:09 | Outpatient (BNVA) | payer MEDICARE, OTHER, SELFPAY | PROVIDERS: PCP Family Medicine; Visit Provider Student in an Organized Health Care Education/Training Program | DX: M17.11 Unilateral primary osteoarthritis, right knee (principal) | CPT/HCPCS: 20610; 99213; J7325 ==